=== PATIENT | female | born 1970 | race Caucasian/White ===

== ENCOUNTER 2023-04-24 07:59 | Outpatient (REF) | payer OTHER, SELFPAY ==
[2023-04-24 08:46] LABS: MANUAL DIFF FLAG NO
[2023-04-24 09:16] LABS: Basophils Percent Auto 0.4 % (0-2); Eosinophils Absolute Auto 0.1 X10*3/uL (0.0-0.4); Eosinophils Percent Auto 1.7 % (0-4); Hematocrit 43.6 % (37.0-47.0); Hemoglobin 14.5 g/dl (12.0-16.0); Imm Gran Abs Auto 0.03 X10*3/uL (0.00-0.03); Imm Gran Pct Auto 0.4 % (0.0-0.4); Lymphocytes Absolute Auto 1.3 X10*3/uL (1.2-4.9); Lymphocytes Percent Auto 16.8 % (20-40); Mean Corpuscular HGB Conc 33.3 g/dl (31.0-35.0); Mean Corpuscular Hemoglobin 27.6 pg (27.0-33.0); Mean Platelet Volume 9.2 fL (9.4-12.3); Monocytes Absolute Auto 0.4 X10*3/uL (0.1-1.2); Monocytes Percent Auto 4.8 % (2-11); Neutrophils Absolute Auto 5.7 x10*3/uL (2.0-8.3); Neutrophils Percent Auto 75.9 % (45-73); Platelet Count 261 X10*3/uL (160-400); Red Blood Count 5.25 X10*6/uL (4.20-5.50); Red Cell Distribution Width 12.9 % (11.0-16.0); White Blood Count 7.5 X10*3/uL (4.8-10.8)
[2023-04-24 09:21] LABS: Estimated Average Glucose 100 mg/dL; Hemoglobin A1c % 5.1 % (<6.0)
[2023-04-24 09:53] LABS: Alanine Aminotransferase 19 U/L (0-31); Alkaline Phosphatase 85 U/L (39-117); Anion Gap 10 (12-20); Aspartate Amino Transferase 18 U/L (5-31); Bilirubin Total 0.4 mg/dL (0.0-1.0); Blood Urea Nitrogen 13 mg/dL (9-16); Carbon Dioxide 25 mmol/L (22-29); Chloride 108 mmol/L (96-108); Estimated Glomerular Filt Rate > 60; Glucose Random 144 mg/dL (60-115); Iron 55 mcg/dL (30-160); Magnesium 1.9 mg/dL (1.6-2.6); Percent Iron Saturation 18 % (15-50); Sodium 139 mmol/L (135-145); Total Iron Binding Capacity 301 mcg/dL (228-428); Total Protein 7.1 g/dL (6.5-8.0); Unsaturated Iron Binding 246 ug/dL
[2023-04-24 10:12] LABS: Ferritin 28 ng/mL (10-250); Free T4 (Free Thyroxine) 0.91 ng/dL (0.71-1.85); Thyroid Stimulating Hormone 1.89 uIU/mL (0.32-4.0); Vitamin D 25-OH Total 46.7 ng/mL (>30)
[2023-04-24 10:14] LABS: Folate 8.9 ng/mL (> or = 4.0); Vitamin B12 834 pg/mL (200-900)
[2023-04-26 07:49] LABS: Triiodothyronine T3 Free 3.2 pg/mL (2.3-4.2)
[2023-04-26 18:24] LABS: Homocysteine 7.4 umol/L (<10.4)
[2023-04-26 20:24] LABS: Lyme Abs Screen <0.90 index
[2023-04-27 14:24] LABS: Zinc 74 mcg/dL (60-130)
[2023-04-27 18:09] LABS: EBV-NA IgG Index >600.00 U/mL; EBV-VCA IgM Ab <36.00 U/mL
[2023-04-27 20:47] LABS: Immunoglobulin A 226 mg/dL (47-310); Transglutaminase IgA <1.0 U/mL
[2023-04-27 23:08] LABS: Methylmalonic Acid 104 nmol/L (87-318)
[2023-04-28 09:34] LABS: Thyroglobulin Antibodies <1 IU/mL (< or = 1); Thyroid Peroxidase Antibodies 1 IU/mL (<9)
[2023-04-29 04:18] LABS: Iodine, Random Urine 48 mcg/L (34-523)
[2023-04-30 11:48] LABS: Anti Nuclear Antibody Pattern Nuclear, Speckled; Anti Nuclear Antibody Screen POSITIVE (NEGATIVE); Anti Nuclear Antibody Titer 1:40 titer
[2023-05-05 14:04] LABS: A phagocytophilum IgG <1:64 (<1:64); A phagocytophilum IgM <1:20 (<1:20); Babesia duncani Ab IgG (WA1) <1:256; Babesia microti IgG <1:64 titer (<1:64); Babesia microti IgM <1:20 titer (<1:20); E chaffeensis IgG <1:64 (<1:64); E chaffeensis IgM <1:20 (<1:20); Lyme Ab Screen <0.90 index
== END 2023-04-24 08:00 | disposition home or self-care (01) ==
LOC: HO.LAB 07:59
PROVIDERS: PCP Internal Medicine; Visit Provider Naturopath
DX: Z00.00 Encounter for general adult medical examination without abnormal findings (principal); R53.83 Other fatigue; K90.9 Intestinal malabsorption, unspecified; N91.5 Oligomenorrhea, unspecified; R23.2 Flushing; N92.0 Excessive and frequent menstruation with regular cycle; K21.9 Gastro-esophageal reflux disease without esophagitis; E72.10 Disorders of sulfur-bearing amino-acid metabolism, unspecified; K22.70 Barrett's esophagus without dysplasia; R20.2 Paresthesia of skin; Z91.09 Other allergy status, other than to drugs and biological substances
CPT/HCPCS: 36415; 80053; 82306; 82607; 82728; 82746; 82784; 83036; 83090; 83540; 83735; 83789; 83921; 84439; 84443; 84481; 84630; 85025; 86003; 86038; 86039; 86141; 86364; 86376; 86617; 86618; 86663; 86664; 86665; 86666; 86753; 86800

== ENCOUNTER 2023-09-15 13:38 | Outpatient (REF) | payer OTHER, SELFPAY ==
[2023-09-16 11:24] LABS: Herpes Simplex Type 2 IgG <0.90 index
== END 2023-09-15 13:39 | disposition home or self-care (01) ==
LOC: HO.HHCL 13:38
PROVIDERS: Visit Provider Advanced Practice Midwife
DX: Z13.89 Encounter for screening for other disorder (principal)
CPT/HCPCS: 36415; 86695; 86696

== ENCOUNTER 2023-10-21 17:33 | Emergency (ER) | payer OTHER, SELFPAY ==
--- NOTE | ~2023-10-21 | US_ITS ---
EXAMINATION: US TRIPLEX LOWER EXTREMITY, LEFT CLINICAL INFORMATION: Pain. COMPARISON: None available. TECHNIQUE: Color-flow triplex imaging with spectral analysis and compression Doppler were performed on the left lower extremity. FINDINGS: Respiratory variation, normal compression and augmented flow are noted throughout the left lower extremity. The visualized common femoral vein, superficial femoral vein, profunda femoral vein, popliteal vein and midcalf peroneal and posterior tibial venous segments show no evidence of deep venous thrombosis. There is no Loera's cyst. US/US venous duplex LE LT IMPRESSION: No evidence of deep venous thrombosis involving the left lower extremity. Electronically signed by: Pablito Antony DO 10/21/2023 08:21 PM EDT
[2023-10-21 18:24] VITALS: BP 143/72; PULSE 70; RESP 16; TEMP 36.9; O2SAT 100; BMI 37.9
--- NOTE | 2023-10-21 18:44 | ED.GENADULT ---
HPI - General Adult General Chief complaint: Extremity Injury, Lower Stated complaint: left knee warm and redness/painful Time Seen by Provider: 10/21/23 23:14 Source: patient, RN notes reviewed and old records reviewed Mode of arrival: ambulatory Limitations: no limitations History of Present Illness ED Provider: Jaime LYNCH narrative: 52-year-old female presents for evaluation of left posterior leg pain. She reports her pain started about 2 weeks ago. She reports that she walks about 2-1/2 miles daily which seems to make the pain worse. Her pain improves with rest She denies any fevers, chills, trauma to the leg or knee Denies any cough, chest pain, shortness of breath Related Data Allergies Allergy/AdvReac Type Severity Reaction Status Date / Time No Known Allergies Allergy Verified 10/21/23 18:26 Review of Systems Constitutional: Constitutional: Denies body ache(s), Denies chills and Denies fever(s) Cardiovascular: Cardiovascular: Denies chest pain and Denies dyspnea Respiratory: Respiratory: Denies cough and Denies dyspnea Gastrointestinal: Gastrointestinal: Denies abdominal pain, Denies nausea and Denies vomiting Musculoskeletal: Musculoskeletal: Reports arthralgias, Denies joint swelling and Denies limited range of motion Integumentary/Breasts: Skin/Breast: Denies erythema Psychiatric: Psychiatric: Denies depression PMFSH Social History Social History Advance Directives: No Advance Directives Information Provided: No Physical Exam ED Vital Signs: Vital Signs - 24 hr 10/21/23 18:24 10/21/23 23:16 Temperature 98.5 F 98.7 F Pulse Rate 70 69 Respiratory Rate 16 20 Blood Pressure 143/72 H 132/74 Pulse Oximetry 100 99 Oxygen Delivery Method Room Air Room Air BMI result Body Mass Index 37.9 Const General: healthy appearing, comfortable, no acute distress, alert and awake Nutritional Appearance: well nourished Orientation/consciousness: patient oriented x3 HENMT Head: Yes normocephalic and Yes atraumatic Eyes Eyelids: Yes eyelids normal Conjunctivae: conjunctivae normal Sclerae: sclerae normal Corneas: corneas normal Pupils: Equal, round and reactive pupils present EOM: EOMs intact bilaterally Neck Neck: Yes full ROM Resp Effort & Inspection: normal respiratory effort, able to speak in complete sentences and not labored Skin General skin exam: no rashes or lesions noted and elasticity normal Neuro General: patient oriented x3 Cranial nerves: Yes Equal, round and reactive pupils present and Yes Bilaterally intact EOM present Cognition (Neuro): normal cognition Extrem Other: Positive left calf and posterior knee tenderness to palpation without deformity palpable. No palpable cords. There is no significant edema to the left knee, no rashes, erythema, no wounds. There is no significant joint effusion. Moving all extremities well without any obvious deformities Course Course Course Narrative: RME: Done by CRISTIN Dillon. [age] year female presents to the ED for posterior left knee pain with swelling for the past 2 weeks. Patient denies any chest pain or shortness of breath. His exam positive any left posterior knee redness but positive for swelling and tenderness. 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 There was no trauma, there are no skin changes to suggest cellulitis, there is no joint effusion or fever to suggest septic joint. Ultrasound was negative. Discharge Plan Discharge Clinical Impression: Acute pain of left lower extremity Patient Disposition: Home, Self-Care Instructions: Tendinitis (ED) Additional Instructions: Your ultrasound did not show any evidence of DVT, Loera's cyst or swollen lymph nodes. Your pain is most likely related to tendinitis and overuse I recommend avoiding excessive activity for the next few days Elevate your legs while resting Use ibuprofen/Tylenol for pain Follow-up with your primary doctor You may follow-up with orthopedics for any worsening symptoms Referrals: Huseyin Thrasher MD [Physician] - (left leg pain) Discharge Date/Time: 10/21/23 23:41 Print Language: Slovenian
--- OUTSIDE RECORDS SUMMARY | 2023-10-21 20:35 | XMS_ITS | Continuity of Care Document ---
Author Organization [facility] Address [address], [address], [address] [place] [id number]- Care Team Providers Care Electronic Technician Name Role Phone Roxana GUTIERREZ, Leslee Parrish Primary Care Physician [phone] [place] [facility] [place]): 12/29/22 - 01/28/23 [facility] [address], [address], [address] [place] [address]- Allergies, Adverse Reactions, Alerts No Known Allergies Medications FLUoxetine 10 mg oral capsule 10 mg, 1, capsule, By Mouth, Daily, # 7 capsule, Refills 0, Tot. Refills 0, Maintenance, 12/05/21 15:31:00 EDT, Route to Pharmacy Electronically, [id number], Partial fill upon patient requestif the prescription is for a schedule II opioid jessee... Start Date: 12/05/21 Status: Ordered FLUoxetine 20 mg oral capsule 20 mg, 1, capsule, By Mouth, Daily, Take after 1 week of 10mg is completed., # 30 capsule, Refills 0, Tot. Refills 0, Maintenance, 12/05/21 15:31:00 EDT, Route to Pharmacy Electronically, [id number], Partial fill upon patient request if the pr... Start Date: 12/05/21 Status: Ordered FLUoxetine 20 mg oral tablet See Instructions, Take 1/2 tablet daily for 7 days. Then take 1 tablet by mouth., # 30 tablet, 1 Refills, Maintenance, 12/04/21 10:15:00 EDT, Tablet, [id number], Partial fill upon patient request if the prescription is for a schedule II opioid... Start Date: 12/04/21 Status: Ordered hydrOXYzine hydrochloride 25 mg oral tablet 1 tablet = 25 mg, By Mouth, Daily at bedtime, # 30 tablet, 3 Refills, Maintenance, 12/04/21 10:19:00 EDT, Tablet, [id number], Partial fill upon patient request if the prescription is for a schedule II opioid drug., 165, cm, 06/18/20 10:13:00 E... Start Date: 12/04/21 Stop Date: 02/08/22 Status: Ordered losartan 50 mg oral tablet 50 mg, 1, tablet, By Mouth, Daily, # 30 tablet, Refills 0, Maintenance, 12/04/21 9:44:00 EDT, Partial fill upon patient request if the prescription is for a schedule II opioid drug. Start Date: 12/04/21 Status: Ordered metoprolol 25 mg oral tablet, extended release 25 mg, 1, tablet, By Mouth, Daily, # 30 tablet, Refills 0, Maintenance, 12/04/21 9:46:00 EDT, Partial fill upon patient request if the prescription is for a schedule II opioid drug. Start Date: 12/04/21 Status: Ordered omeprazole 20 mg oral delayed release tablet 1 tablet = 20 mg, By Mouth, 2 times a day, # 30 tablet, 0 Refills, Maintenance, 12/04/21 9:43:00 EDT, [facility] Tablet, Partial fill upon patient request if the prescription is for a schedule II opioid drug. Start Date: 12/04/21 Status: Ordered Vitamin C with Folic Acid and Iron oral tablet, extended release 1 tablet, By Mouth, Daily, 0 Refills, Maintenance, 12/04/21 10:50:00 EDT, Partial fill upon patientrequest if the prescription is for a schedule II opioid drug. Start Date: 12/04/21 Status: Ordered Problem List Condition Confirmation Course Effective Dates Status Health St atus Informant Generalized anxiety disorder Confirmed Active Neoplasm of bone Confirmed Active Other obsessive-compulsiv e disorder Confirmed Active PCOS (polycystic ovarian syndrome) Confirmed Active PMDD (premenstrual dysphoric disorder) Confirmed Active Social History Social History Type Response Smoking Status Never (less than 100 in lifetime);Never entered on: 12/04/21 Sex Patient Care team information Care Team Personnel Name: Leslee Schmidt NP Position: Reference Physician Member Role: PCP Address: Address: [address] [place] [address] [place] [address] Name: Cheryle Rosen [place] Position: [facility] RN Member Role: Primary Care Nurse Care Team Related Persons Name: CHARISMA SOFIA Address: home [address] [place] [address] Name: SRIRAM SARAH Address: home [address] [place] [address] Name: AYANNA NEVILLE Address: home [address] [place] [address]
--- OUTSIDE RECORDS SUMMARY | 2023-10-21 20:35 | XMS_ITS | Continuity of Care Document ---
Author Organization [facility] Address [address] [place] [address]- Care Team Providers Care Scaffolding Helper Name Role Phone Wesley Mendez MD Primary Care Physician Encounter [facility] Date(s): 03/23/19 - 03/24/[address] [address]- [facility] Encounter Diagnosis Chest pain(Final) - 03/24/19 Palpitations(Final) - 03/24/19 Discharge Disposition: A-D/C Home Attending Physician: Oc Ashton MD Admitting Physician: Oc Ashton MD Referring Physician: Not on Staff, Referring MD Allergies, Adverse Reactions, Alerts Substance Reaction Severity Status NKA Active Medications clonazePAM 0.5 mg oral tablet 1 tablet = 0.5 mg, By Mouth, Daily, [facility], # 30 tablet, 0 Refills, Maintenance, 08/24/17 8:40:00EDT, Tablet, [facility] Start Date: 08/24/17 Stop Date: 09/23/17 Status: Ordered famotidine 20 mg oral tablet 20 mg, 1, tablet, By Mouth, Daily, # 30 tablet, Refills 0, Tot. Refills 0, Maintenance, 06/29/16 18:53:34, Print Requisition Start Date: 06/29/16 Status: Ordered Problem List Condition Effective Dates Status Health Status Inform ant Neoplasm of bone(Confirmed) Active Results Radiology Reports * Exam Date Time Procedure Performing Provider Status 03/23/19 8:19 PM Chest 2 Views Frontal and Lat Mary Jo Kent; Auth (Verified) Notes: (Chest 2 Views Frontal and Lat) Reason For Exam: Angina RESULT: Chest 2 Views Frontal and Lat Chest 2 Views Frontal and Lat Reason: Angina; Clinical Question(s): CHF; Hx of Present Illness: the pt report pain in the mid sternal chest pain is reproducable with palpations the pt reports pain comes and goes the pt report family tx of heart atack COMPARISON: 08/30/2017. FINDINGS: LINES AND TUBES: None. LUNGS AND PLEURA: Clear lungs. Normal pulmonary vascularity. No pleural effusion. No pneumothorax. HEART, MEDIASTINUM AND MINDI: Heart is normal in size. Normal mediastinal and hilar contour. BONES AND SOFT TISSUES: No acute abnormality. IMPRESSION: No acute abnormality. WSN: [id number] Dictated By: Shaji Ureña MD Dictated Date/Time: 03/23/19 8:29 pm Reviewed By: Shaji Ureña MD Signed By: Shaji Ureña MD Signed Date/Time: 03/23/19 8:29 pm Transcribed By: FERNANDO Transcribed Date/Time: 03/23/19 8:28 pm Vital Signs Most recent to oldest [Reference Range]: 1 2 3 Height 165 cm (03/23/19 11:54 PM) 165 cm (03/23/19 11:05 PM) 165 cm (03/23/19 7:15 PM) Weight 122 kg (03/23/19 11:54 PM) 122 kg (03/23/19 11:05 PM) 122 kg (03/23/19 7:15 PM) Oxygen Saturation [94-100 %] 100 % (03/23/19 11:54 PM) 99 % (03/23/19 11:05 PM) 98 % (03/23/19 7:15 PM) Pulse Rate [55-90 bpm] 71 bpm (03/23/19 11:54 PM) 79 bpm (03/23/19 11:05 PM) 80 bpm (03/23/19 7:15 PM) Body Mass Index [18.5-24.99] 44.81 *>HHI* (03/23/19 11:54 PM) 44.81 *>HHI* (03/23/19 11:05 PM) Blood Pressure [90-138/55-84 mm Hg] 141/81mm Hg *H* (03/23/19 11:54 PM) 142/77mm Hg *H* (03/23/19 11:05 PM) 147/78mm Hg *H* (03/23/19 7:15 PM) Respiratory Rate [16-30 br/min] 18 br/min (03/23/19 11:54 PM) 16 br/min (03/23/19 11:05 PM) 18 br/min (03/23/19 7:15 PM) Temperature [96.8-100.4 DegF] 98.4 DegF (03/23/19 11:54 PM) 98.0 DegF (03/23/19 11:05 PM) 98.4 DegF (03/23/19 7:15 PM) Mode of Delivery (Oxygen) Room air (03/23/19 11:54 PM) Room air (03/23/19 11:05 PM) Room air (03/23/19 7:15 PM) Blood pressure sites Arm, left (03/23/19 11:54 PM) Arm, right (03/23/19 11:05 PM) Temperature Route Oral (03/23/19 11:54 PM) Oral (03/23/19 11:05 PM) Temporal (03/23/19 7:15 PM) Dry Weight 122 kg (03/23/19 11:54 PM) 122 kg (03/23/19 11:05 PM) 122 kg (03/23/19 7:15 PM) Weight Obtained Via Standing scale (03/23/19 7:15 PM) Social History Social History Type Response Smoking Status Never (less than 100 in lifetime) entered on: 03/23/19 Sex
--- OUTSIDE RECORDS SUMMARY | 2023-10-21 20:35 | XMS_ITS | Continuity of Care Document ---
Author Organization [facility] Address [address] [place] [address]- Care Team Providers Care Hydro Electric Station Operator Name Role Phone Roxana RESTAURANT AND BAR MANAGER, Leslee Parrish Primary Care Physician [place] [facility] [place] 07/02[place]20 - 08/01/20 [facility] [address] [place] [id number] Attending Physician: Admtr, Bre Admitting Physician: Admtr, Ar8 Referring Physician: Admtr, Ar8 Allergies, Adverse Reactions, Alerts Substance Reaction Severity [...] Status Inform ant Neoplasm of bone(Confirmed) Active Social History Social History Type Response Smoking Status Never (less than 100 in lifetime) entered on: 03/23/19 Sex
--- OUTSIDE RECORDS SUMMARY | 2023-10-21 20:35 | XMS_ITS | Continuity of Care Document ---
Author Organization [facility] Address [address] [place] [address]- Care Team Providers Care Jewel Grinder Name Role Phone Roxana GUTIERREZ, Leslee Parrish Primary Care Physician [phone] Encounter [facility] [place] Date(s): 06/27/20 - 07/31/20 [facility] [address] [place] [id number] Attending Physician: Joey Estrella MD Admitting Physician: Joey Estrella MD Referring Physician: Leslee Schmidt NP Allergies, Adverse Reactions, Alerts Substance Reaction Severity [...]
--- OUTSIDE RECORDS SUMMARY | 2023-10-21 20:35 | XMS_ITS | Continuity of Care Document ---
Author Organization [facility] Address [address] [address]- Care Team Providers Care Cut File Clerk Name Role Phone Roxana UGTIERREZ, Leslee Parrish Primary Care Physician [phone] Encounter [facility] [place] Date(s): 07/08/23 - 08/07/23 [facility] [address] [address]- Attending Physician: Bre Guerra Admitting Physician: AdmtrBre Referring Physician: Admtr, Ar8 Allergies, Adverse Reactions, Alerts No Known Allergies Medications hydrOXYzine hydrochloride 25 mg oral tablet 1 tablet = 25 mg, By Mouth, Every 6 hours, PRN as needed for anxiety, # 120 tablet, 3 Refills, Maintenance, 04/06/23 10:07:00 EST, Tablet, [facility] [place], Partial fill upon patient request if the prescription is for a schedule II opioid drug., 167, cm,... Start Date: 04/06/23 Status: Ordered losartan 50 mg oral tablet [...] opioid drug. Start Date: 12/04/21 Status: Ordered traZODone 50 mg oral tablet 50 mg, 1, tablet, By Mouth, Daily at bedtime, # 90 tablet, Refills 1, Tot. Refills 1, Maintenance, 04/06/23 10:12:00 EST, Route to Pharmacy Electronically, [facility] [place] [facility], Partial fill upon patient request if the prescription is for a schedule II opioid... Start Date: 04/06/23 Status: Ordered Vitamin C with Folic Acid and Iron oral tablet, extended release 1 tablet, By Mouth, Daily, 0 Refills, Maintenance, 12/04/21 10:50:00 EDT, Partial fill upon patientrequest if the prescription is for a schedule II opioid drug. Start Date: 12/04/21 Status: Ordered Problem List Condition Confirmation Course Effective Dates Status Health St atus Informant Illness anxiety disorder Confirmed Active Neoplasm of bone Confirmed Active Obsessive-compulsi ve disorder Confirmed Active PCOS (polycystic ovarian syndrome) Confirmed Active PMDD (premenstrual dysphoric disorder) Confirmed Active Social History Social History Type Response Smoking Status Never (less than 100 in lifetime);Never entered on: 12/04/21 Sex Patient Care team information Care Team Personnel Name: Leslee Schmidt NP Position: Reference Physician Member Role: PCP Address: Address: [address] [place] [id number] Name: Cheryle Rosen [place] Position: [facility] Office Staff Member Role: Primary Care Nurse Care Team Related Persons Name: CHARISMA SOFIA Address: home [address] [place] [address] Name: SRIRAM SARAH Address: home [address] [place] [address] Name: AYANNA NEVILLE Address: home [address] [place] [address]
--- OUTSIDE RECORDS SUMMARY | 2023-10-21 20:35 | XMS_ITS | Continuity of Care Document ---
Author Organization [facility] Address [address] [place] [address]- Care Team Providers Care Oil Field Rig Builder Name Role Phone Roxana GUTIERREZ, Leslee Parrish Primary Care Physician [phone] Encounter [facility] [id number] Date(s): 03/21/22 - 03/21/[address] [address]- Discharge Disposition: A-D/C Home Attending Physician: Dennis Hidalgo MD Admitting Physician: Dennis Hidalgo MD Referring Physician: Not on Staff, Referring MD Allergies, Adverse Reactions, Alerts No Known Allergies [...] 3 Refills, Maintenance, 12/04/21 10:19:00 EDT, Tablet, [facility] #[id number], Partial fill upon patient request if [...] Active PMDD (premenstrual dysphoric disorder) Confirmed Active Vital Signs Most recent to oldest [Reference Range]: 1 2 3 Height 168 cm (03/21/22 3:11 PM) 168 cm (03/21/22 9:42 AM) Weight 114 kg (03/21/22 3:11 PM) 114 kg (03/21/22 9:42 AM) Oxygen Saturation [94-100 %] 98 % (03/21/22 3:11 PM) 100 % (03/21/22 12:20 PM) 98 % (03/21/22 9:42 AM) Pulse Rate [55-90 bpm] 79 bpm (03/21/22 3:11 PM) 64 bpm (03/21/22 12:20 PM) 73 bpm (03/21/22 9:42 AM) Blood Pressure [90-138/55-84 mm Hg] 128/59mm Hg (03/21/22 3:11 PM) 130/52mm Hg (03/21/22 12:20 PM) 141/90mm Hg *H* (03/21/22 9:42 AM) Respiratory Rate [16-30 br/min] 20 br/min (03/21/22 3:11 PM) 19 br/min (03/21/22 12:20 PM) 18 br/min (03/21/22 9:42 AM) Temperature [96.8-100.4 DegF] 97.9 DegF (03/21/22 3:11 PM) 98.1 DegF (03/21/22 12:20 PM) 98 DegF (03/21/22 9:42 AM) Mode of Delivery (Oxygen) Room air (03/21/22 3:11 PM) Room air (03/21/22 12:20 PM) Room air (03/21/22 9:42 AM) Blood pressure sites Arm, right (03/21/22 3:11 PM) Arm, left (03/21/22 12:20 PM) Arm, left (03/21/22 9:42 AM) Temperature Route Oral (03/21/22 3:11 PM) Oral (03/21/22 12:20 PM) Oral (03/21/22 9:42 AM) Dry Weight 114 kg (03/21/22 3:11 PM) 114 kg (03/21/22 9:42 AM) Social History Social History Type Response Smoking Status Never (less than 100 in lifetime);Never entered on: 12/04/21 Sex Note * Tory Irving: PERFORM Event Display: Patient Education Leaflets Authored Date: [id number] Eye Exposure, Chemical ?? [id number] Eye Exposure, Chemical A chemical exposure, or injury, to the eye can occur when an acid or base solution comes in contactwith your eye. As soon as the chemical gets in your eye, it is very important to flush (irrigate) your eye with sterile saline solution right away. If you don't have sterile saline, it is OK to use tap water instead. After you flush the eye, get medical care right away. Chemical exposure??can cause anything from mild irritation to permanent scarring and vision loss. How serious??the injury is depends on: ??? What type of chemical it was ??? How concentrated the chemical was ??? Whether the chemical lillian acid or a base ??? How long the chemical was in your eye It is common to have some irritation for the next 24 hours, even in mild cases. If the exposure wasmore serious, be sure to follow up as directed. The pressure inside of the eye can increase (called glaucoma) hours to days after a chemical eye injury. This needs prompt treatment. Watch for the symptoms described below. Home care ??? You can put a cold pack over the eye for 20 minutes at a time. This may help reduce swelling and pain. To make a cold pack, put ice cubes in a plastic bag that seals at the top. Wrap the bag in aclean, thin towel or cloth. ??? Eye drops may be prescribed to reduce irritation, inflammation, andrisk of infection. If no drops were prescribed, you may use [id number] preservative-free artificial tears as needed. ??? You may use acetaminophen or ibuprofen to control pain, unless another medicine was prescribed. If you have chronic liver or kidney disease or have ever had a stomach ulceror gastrointestinal bleeding, talk with your healthcare provider before using these medicines. If an eye patch was put on: ??? You may put the cold pack over the eye patch. ??? If you were givena follow-up appointment to have the patch removed and the eye examined, don't miss it. An eye patchshould not be left in place for more than 48 hours, unless you are advised to do so by your healthcare provider. ??? Don't drive a motor vehicle or use machinery with the eye patch in place. It is hard to store director distance with only one eye. ?? Follow-up care Follow up with your healthcare provider, or as directed. ?? When to get medical advice Call your healthcare provider or get medical care right away if any of these occur: ??? Increased eyelid swelling ??? Increasing pain in the eye ??? Increasing redness or drainage from the eye ??? Normal vision doesn't come back within 24 to 48 hours ??? Continued feeling that something is in your eye, lasting more than 48 hours ?? Last Reviewed Date: 2022 ?? [id number] [employer]. All rights reserved. This information is not intended as a substitute for professional medical care. Always follow your healthcare professional's instructions. ?? Patient Care team information Care Team Personnel Name: Rudi Carlson Position: [facility] Cardio/Pulm Mgr ([facility] Member Role: Primary Care Nurse Name: Roxana FUNERAL HOME MANAGER Leslee Position: Reference Physician Member Role: PCP Address: Address: [address] [place] [address]- Name: Cheryle Maloney Position: [facility] RN Member Role: Primary Care Nurse Name: Tory Irving Position: [facility] Associate Professional Member Role: ED Physician Preschool Aide Address: Address: [address] [place] [address] [place] [address]- [place] Name: Dennis Hidalgo MD Position: [facility] ED Medicine MD Member Role: Admitting Physician Address: Address: [address] [place] [id number]- Name: Ananya Torres Position: [facility] ED RN W/OE and Tasks Member Role: Patient Care Provider Name: Ana Jean Position: [facility] ED TA [facility] Care Team Related Persons Name: CHARISMA SOFIA Address: home [address] [place] [address] Name: SRIRAM SARAH Address: home [address] [place] [address] Name: AYANNA NEVILLE Address: home [address] [place] [address]
--- OUTSIDE RECORDS SUMMARY | 2023-10-21 20:35 | XMS_ITS | Continuity of Care Document ---
[facility] Address [address] [place] [address]- Care Team Providers Care Director Of Student Financial Aid Name Role Phone Roxana GUTIERREZ, Leslee Parrish Primary Care Physician [phone] [facility] Date(s): 10/12/23 - 10/13/[address] [address]- Discharge Disposition: A-D/C Walkout Attending Physician: Not on Staff, Attending MD Admitting Physician: Not on Staff, Admitting MD Referring Physician: Not on Staff, Referring MD Allergies, Adverse Reactions, Alerts No Known Allergies Medications hydrOXYzine hydrochloride 25 mg oral tablet 1 tablet = 25 mg, By Mouth, Every 6 hours, PRN as needed for anxiety, # 120 tablet, 3 Refills, Maintenance, 04/06/23 10:07:00 EST, Tablet, [facility], Partial fill upon patient request if [...] 04/06/23 10:12:00 EST, Route to Pharmacy Electronically, [facility], Partial fill upon patient request if [...] recent to oldest [Reference Range]: 1 2 Height 168 cm (10/12/23 9:02 PM) Weight 107.7 kg (10/12/23 9:02 PM) Oxygen Saturation [94-100 %] 99 % (10/12/23 9:02 PM) 99 % (10/12/23 9:01 PM) Pulse Rate [55-90 bpm] 79 bpm (10/12/23 9:02 PM) 85 bpm (10/12/23 9:01 PM) Blood Pressure [90-138/55-84 mm Hg] 138/ 59mm Hg (10/12/23 9:02 PM) Respiratory Rate [16-30 br/min] 17 br/mi n (10/12/23 9:02 PM) Temperature [96.8-100.4 DegF] 97.6 DegF (10/12/23 9:02 PM) Mode of Delivery (Oxygen) Room air (10/12/23 9:02 PM) Blood pressure sites Arm, left (10/12/23 9:02 PM) Temperature Route Temporal (10/12/23 9:02 PM) Dry Weight 107.7 kg (10/12/23 9:02 PM) Weight Obtained Via Standing scale (10/12/23 9:02 PM) Dry Weight Obtained Via Standing scale (10/12/23 9:02 PM) Social History Social History Type Response Smoking Status Never (less than 100 in lifetime);Never entered on: 12/04/21 Sex Patient Care team information Care Team Personnel Name: Leslee Schmidt NP Position: Reference Physician Member Role: PCP Address: Address: [address] [place] [id number] Name: Cheryle Rosen [place] Position: [facility] Office Staff Member Role: Primary Care Nurse Care Team Related Persons Name: CHARISMA SOFIA Address: home [address] [place] [address] Name: SRIRAM SARAH Address: home [address] [place] [address] Name: AYANNA NEVILLE Address: home [address] [place] [address]
--- OUTSIDE RECORDS SUMMARY | 2023-10-21 20:35 | XMS_ITS | Continuity of Care Document ---
Author Organization [facility] Address [address] [place] [address]- Care Team Providers Care Clinical Services Specialist Name Role Phone Roxana DRY WALL INSTALLER, Leslee Parrish Primary Care Physician Encounter [facility] Date(s): 06/24/20 - 07/24/20 [facility] [address] [place] [id number] Allergies, Adverse Reactions, Alerts Substance Reaction Severity [...]
--- OUTSIDE RECORDS SUMMARY | 2023-10-21 20:35 | XMS_ITS | Continuity of Care Document ---
Author Organization [facility] Address [address] [place] [address]- Care Team Providers Care Warp Knitter Name Role Phone Wesley Mendez MD Primary Care Physician Encounter [facility] Date(s): 01/15/19 - 01/16/[address] [address]- [facility] Encounter Diagnosis Dizziness(Final) - 01/16/19 Near syncope(Final) - 01/16/19 Discharge Disposition: A-D/C Home Attending Physician: Traci Monroy DO Admitting Physician: Vel URIOSTEGUI, [facility] A Referring Physician: Not on Staff, Referring MD [...] Print Requisition Start Date: 06/29/16 Status: Ordered meclizine 25 mg oral tablet 1 tablet = 25 mg, By Mouth, 3 times a day, PRN for dizziness, # 30 tablet, 0 Refills, Acute 01/30/19 9:14:00 EST, 01/16/19 9:13:35 EST, Tablet, 168, cm, 08/30/17 20:15:35 EDT, Height, 120, kg, 08/30/17 20:15:35 EDT, Dry Weight Start Date: 01/16/19 Stop Date: 01/30/19 Status: Ordered Problem List Condition Effective Dates Status Health Status Inform ant Neoplasm of bone(Confirmed) Active Vital Signs Most recent to oldest [Reference Range]: 1 2 3 Oxygen Saturation [94-100 %] 99 % (01/16/19 6:50 AM) 100 % (01/16/19 5:45 AM) 100 % (01/16/19 5:16 AM) Pulse Rate [55-90 bpm] 74 bpm (01/16/19 6:50 AM) 80 bpm (01/16/19 5:45 AM) 82 bpm (01/16/19 5:16 AM) Blood Pressure [90-138/55-84 mm Hg] 148/81mm Hg *H* (01/16/19 6:50 AM) 125/50mm Hg (01/16/19 5:45 AM) 138/75mm Hg (01/16/19 5:16 AM) Respiratory Rate [16-30 br/min] 18 br/min (01/16/19 8:00 AM) 20 br/min (01/16/19 6:50 AM) 16 br/min (01/16/19 5:45 AM) Temperature [96.8-100.4 DegF] 98.4 DegF (01/16/19 6:50 AM) 98.1 DegF (01/16/19 5:45 AM) 98.3 DegF (01/16/19 3:42 AM) Mode of Delivery (Oxygen) Room air (01/16/19 6:50 AM) Room air (01/16/19 5:45 AM) Room air (01/16/19 12:32 AM) Blood pressure sites Arm, right (01/16/19 6:50 AM) Arm, left (01/16/19 5:45 AM) Arm, right (01/16/19 3:42 AM) Temperature Route Oral (01/16/19 6:50 AM) Oral (01/16/19 5:45 AM) Oral (01/16/19 3:42 AM)
--- OUTSIDE RECORDS SUMMARY | 2023-10-21 20:35 | XMS_ITS | Continuity of Care Document ---
[facility] Address [address] [place] [address]- Care Team Providers Care Junior Web Developer Name Role Phone Roxana GUTIERREZ, Leslee Parrish Primary Care Physician Encounter [facility] Date(s): 12/17/22 - 12/17/[address] [address]- Discharge Disposition: A-D/C Home Attending Physician: Radha URIOSTEGUI, Oc Hurst Admitting Physician: Oc Garcia MD Referring Physician: Not on Staff, Referring [...] 3 Refills, Maintenance, 12/04/21 10:19:00 EDT, Tablet, [id number], Partial fill upon patient request [...] Active PMDD (premenstrual dysphoric disorder) Confirmed Active Results Radiology Reports * Exam Date Time Procedure Performing Provider Status 12/17/22 6:57 PM US Doppler Ext Lower Venous Left Haritha Ball; Auth (Verified) Notes: (US Doppler Ext Lower Venous Left) Reason For Exam: Pain in limb;Other: RESULT: US Doppler Ext Lower Venous Left US Doppler Ext Lower Venous Left Hx of Present Illness: pt reports left knee pain x 2 weeks tender to touch, denies any trauma to area, denies recent travels; Reason: Other:; Pain in limb; Clinical Question(s): Thrombus COMPARISON: None IMAGING TECHNIQUE: Ultrasound of the veins from the groin through the calf was performed using grayscale, color, and spectral Doppler ultrasound assessing for complete compressibility and normal flowcharacteristics. FINDINGS: Common femoral vein: Patent. No thrombosis. Femoral vein: Patent. No thrombosis. Popliteal vein: Patent. No thrombosis. Gastrocnemius veins: The visualized portions are patent without evidence of thrombosis. Peroneal veins: The visualized portions are patent without evidence of thrombosis. Posterior tibial veins: The visualized portions are patent without evidence of thrombosis. Contralateral common femoral vein: Patent. No thrombosis. OTHER FINDINGS: IMPRESSION: No evidence of deep venous thrombosis. WSN: [id number] Ordering Physician: Ravindra Hassan Dictated By: Shaji Ureña MD Dictated Date/Time: 12/17/22 7:22 pm Reviewed By: Shaji Ureña MD Signed By: Shaji Ureña MD Signed Date/Time: 12/17/22 7:22 pm Transcribed By: FERNANDO Transcribed Date/Time: 12/17/22 7:22 pm * Exam Date Time Procedure Performing Provider Status 12/17/22 6:23 PM Knee 3 Views Left Pati Acevedo; Tabby h (Verified) Notes: (Knee 3 Views Left) Reason For Exam: Decreased ROM RESULT: Knee 3 Views Left PROCEDURE: Knee 3 Views Left CLINICAL INDICATION: 52 years old Female with Hx of Present Illness: pt reports left knee pain x 2 weeks tender to touch, denies any trauma to area, denies recent travels; Reason: Decreased ROM; Clinical Question(s): Fracture; Special Instructions: Patella (Suncrest View). TECHNIQUE: AP and lateral standing and sunrise patellar view of the LEFT knee are obtained. COMPARISONS: None. FINDINGS: Bones and joints: No fracture or dislocation. Mild narrowing of the medial joint compartment with mild spurring of the medial tibial spine. Lateral and patellofemoral compartments appear unremarkable. Mild upper pole and interpolar enthesopathy (calcification at ligament and tendon insertion sites)in the patella. Soft Tissues: Regional soft tissues are unremarkable. No evidence of radiopaque foreign body. IMPRESSION: 1. No evidence of acute bony injuries. 2. Mild osteoarthritis of the medial knee joint compartment. Thank you for allowing me to participate in the care of this patient. WSN: [id number] Ordering Physician: Ravindra Hassan Dictated By: Jose Villasenor MD Dictated Date/Time: 12/17/22 6:37 pm Reviewed By: Jose Villasenor MD Signed By: Jose Villasenor MD Signed Date/Time: 12/17/22 6:37 pm Transcribed By: CSAyleen Transcribed Date/Time: 12/17/22 6:35 pm Vital Signs Most recent to oldest [Reference Range]: 1 2 3 Height 167 cm (12/17/22 5:55 PM) Weight 111 kg (12/17/22 5:55 PM) Oxygen Saturation [94-100 %] 99 % (12/17/22 7:25 PM) 99 % (12/17/22 5:55 PM) 100 % (12/17/22 5:54 PM) Pulse Rate [55-90 bpm] 62 bpm (12/17/22 7:25 PM) 71 bpm (12/17/22 5:55 PM) 87 bpm (12/17/22 5:54 PM) Blood Pressure [90-138/55-84 mm Hg] 128/55mm Hg (12/17/22 7:25 PM) Respiratory Rate [16-30 br/min] 16 br/min (12/17/22 7:25 PM) 17 br/min (12/17/22 5:55 PM) 16 br/min (12/17/22 5:54 PM) Temperature [96.8-100.4 DegF] 97 DegF (12/17/22 5:55 PM) Mode of Delivery (Oxygen) Room air (12/17/22 7:25 PM) Room air (12/17/22 5:55 PM) Room air (12/17/22 5:54 PM) Blood pressure sites Arm, left (12/17/22 7:25 PM) Arm, left (12/17/22 5:55 PM) Temperature Route Tympanic (12/17/22 5:55 PM) Dry Weight 111 kg (12/17/22 5:55 PM) Social History Social History Type Response Smoking Status Never (less than 100 in lifetime);Never entered on: 12/04/21 Sex Note * Mohit Bernstein: PERFORM Event Display: Patient Education Leaflets Authored Date: [id number] Knee Pain with Uncertain Cause ?? [id number] Knee Pain with Uncertain Cause Knee pain has several common causes. These can include: ??? A sprain of the ligaments that support the joint ??? An injury to the cartilage lining of the joint ??? Arthritis from [id number]-[id number]-[id number] or inflammation There are other causes as well. You may have swelling, reduced movement of the knee joint, and painwith walking. A definite diagnosis will still need to be made. If your symptoms don't get better, you may need further follow-up and testing. Home care ??? Stay off the injured leg as much as possible until pain improves. ??? Apply an ice pack over the injured area for 15 to 20 minutes every 3 to 6 hours. Do this for the first 24 to 48 hours. You can make an ice pack by filling a plastic bag that seals at the top with ice cubes and then wrapping it with a thin towel. Continue to use ice packs for relief of pain and swelling as needed. After 48 hours, apply heat (warm shower or warm bath) for 15 to 20 minutes several times a day, or alternate ice and heat. If you have to wear a qkrd-rpm-lblu knee brace, you can open it to apply the ice pack, or heat, directly to the knee. Never put ice directly on the skin. Always wrap the ice in a towel or other type of cloth. ??? You may use dydv-tbl-naxxvui pain medicine to control pain, unless another pain medicine was prescribed. Talk with your healthcare provider before using these medicines if you have chronic liver or kidney disease. Also talk with your provider if you have had a stomach ulcer or digestive bleeding or take a blood thinner.. ??? If crutches or a walker have been recommended, don't put weight on the injured leg until you can do so without pain. Check with your healthcare provider before returning to sports or full work duties. ??? If you have a gedq-yvp-gxit kneebrace, you can remove it to bathe and sleep, unless told otherwise. ?? Follow-up care Follow up with your healthcare provider as advised. This is usually within 1 to 2 weeks. If X-rays were taken, you will be told of any new findings that may affect your care ?? Call 911 Call 911 if you have: ??? Shortness of breath ??? Chest pain ?? When to seek medical advice Call your healthcare provider or seek medical care right away if any of these occur: ??? Toes or foot becomes swollen, cold, blue, numb, or tingly ??? Pain or swelling spreads over the knee or calf ??? Warmth or redness appears over the knee or calf ??? Other joints become painful ??? Rash appears ??? Fever of 100.4??F (38??C) or higher, or as directed by your healthcare provider ??? Chills ?? Last Reviewed Date: 2020 ?? [id number] [employer]. All rights reserved. This information is not intended as a substitute for professional medical care. Always follow your healthcare professional's instructions. ?? Patient Care team information Care Team Personnel Name: Roxana KITCHEN BATH DESIGNER , Leslee Parrish Position: Reference Physician Member Role: PCP Address: Address: [address] [place] [id number]- Name: Cheryle Rosen [place] Position: [facility] RN Member Role: Primary Care Nurse Name: Radha URIOSTEGUI, Oc Hurst Position: [facility] Resident Member Role: Admitting Physician Address: Address: [address] [place] [address]- Name: Mohit Bernstein Position: [facility] Associate Professional Member Role: ED Physician Business Broker Address: Address: [address] [facility] [place] [address]- [place] Name: Heidi Horne RN Position: [facility] ED RN W/OE and Tasks Member Role: Patient Care Provider Name: Dayana Briceno Position: [facility] ED TA [facility] Member Role: Patient Care Provider Care Team Related Persons Name: TERRELL SOFIAIA Address: home [address] [place] [address] Name: SRIRAM SARAH Address: home [address] [place] [address] Name: AYANNA NEVILLE Address: home [address] [facility] [address]
[2023-10-21 23:16] VITALS: BP 132/74; PULSE 69; RESP 20; TEMP 37.1; O2SAT 99
== END 2023-10-21 23:41 | disposition home or self-care (01) ==
PROVIDERS: Emergency Provider Internal Medicine
DX: M79.662 Pain in left lower leg (principal); R60.0 Localized edema
CPT/HCPCS: 93971; 99283; 99284

== ENCOUNTER 2023-12-10 07:00 | Outpatient (RCR) | payer OTHER, SELFPAY | END 2024-01-14 10:53 | disposition home or self-care (01) | LOC: HO.PT 07:00 | PROVIDERS: PCP Internal Medicine; Visit Provider Student in an Organized Health Care Education/Training Program | DX: M25.562 Pain in left knee (principal); S76.312S Strain of muscle, fascia and tendon of the posterior muscle group at thigh level, left thigh, sequela | CPT/HCPCS: 97035; 97110; 97140; 97162; 97530 ==

== ENCOUNTER 2024-01-04 14:53 | Outpatient (REF) | payer OTHER, SELFPAY ==
[2024-01-06 06:28] LABS: Herpes Simplex Type 2 IgG <0.90 index
== END 2024-01-04 14:54 | disposition home or self-care (01) ==
LOC: HO.HHCL 14:53
PROVIDERS: Visit Provider Nurse Practitioner
DX: Z11.3 Encounter for screening for infections with a predominantly sexual mode of transmission (principal)
CPT/HCPCS: 36415; 86695; 86696